=== PATIENT | female | born 1995 | race American Indian/Alaskan Native ===

== ENCOUNTER 2017-10-30 01:11 | Emergency (ER) | payer MEDICAID ==
[2017-10-30 02:22] VITALS: BP 110/55
[2017-10-30 02:58] LABS: Bilirubin,Urine NEG (Negative); Blood,Urine NEG (Negative); Color,Urine Yellow (Yellow); Mucus,Urine 2+ /HPF
[2017-10-30 02:59] LABS: HCG Qualitative,Urine Negative (Negative)
--- NOTE | 2017-10-30 03:48 | XRay Report ---
FINAL REPORT EXAM: XR KNEE 1-2V RT HISTORY: fall knee pain COMPARISON: None available. FINDINGS: Two views of right knee obtained. Bony structures are intact. Joint spaces are preserved. No acute fracture dislocation. IMPRESSION: No acute bony abnormality.
[2017-10-30] MEDS ORDERED: MOTRIN PO ONE (04:45)
--- NOTE | 2017-10-30 04:47 | Emergency Department Report ---
ED Fall HPI - General Chief Complaint: Extremity Injury, Lower Stated Complaint: FALL Time Seen by Provider: 10/30/17 04:42 Source: patient Mode of arrival: Ambulatory - History of Present Illness Initial Comments: 22-year-old -[place] female comes in reporting that she fell off the porch and landed on her knee and now has right knee pain. Patient reports she did not take anything for the pain. It happened approximately 10 PM Sunday night. Patient reports no past medical history currently taking no medications. No known drug allergies. MD Complaint: fall -: hour(s) (6) Fall From: standing When Fall Occurred: 4-[address] Fall Occurred: home (off her porch) Loss of Consciousness: none Prolonged Down Time?: no Symptoms Prior to Fall: none Location - Extremities: Right: Knee Severity: severe Severity scale (0 -10): 10 Quality: sharp Associated Symptoms: denies - Related Data Home Medications Medication Instructions Recorded Confirmed Last Taken Vit No.130/Iron/Folic 1 each PO DAILY 08/04/15 08/04/15 08/03/15 09:00 [ Tablet] Previous Rx's Medication Instructions Recorded Last Taken Type HYDROcodone/APAP 5-325 [[place] 2 each PO Q6H PRN #30 tablet 08/06/15 Unknown Rx 5-325 mg TAB] Ibuprofen [Motrin 600 MG tab] 600 mg PO Q6HR #30 tablet 08/06/15 Unknown Rx Ibuprofen [Motrin 800 MG tab] 800 mg PO Q8HR #15 tablet 10/30/17 Unknown Rx Allergies Allergy/AdvReac Type Severity Reaction Status Date / Time No Known Allergies Allergy Verified 10/30/17 02:16 ED Review of Systems ROS: Stated complaint: FALL Other details as noted in HPI Constitutional: denies: chills, fever Musculoskeletal: arthralgia (rt knee) ED Past Medical Hx - Past Medical History Previous Medical History?: No Hx Hypertension: No Hx Heart Attack/AMI: No Hx Congestive Heart Failure: No Hx Diabetes: No Hx Deep Vein Thrombosis: No Hx Renal Disease: No Hx Sickle Cell Disease: No Hx Seizures: No Hx Asthma: No Hx COPD: No Hx HIV: No - Surgical History Past Surgical History?: No - Social History Smoking Status: Never Smoker Substance Use Type: None - Medications Home Medications: Home Medications Medication Instructions Recorded Confirmed Last Taken Type Vit No.130/Iron/Folic 1 each PO DAILY 08/04/15 08/04/15 08/03/15 09:00 History [ Tablet] HYDROcodone/APAP 5-325 [[place] 2 each PO Q6H PRN #30 tablet 08/06/15 Unknown Rx 5-325 mg TAB] Ibuprofen [Motrin 600 MG tab] 600 mg PO Q6HR #30 tablet 08/06/15 Unknown Rx Ibuprofen [Motrin 800 MG tab] 800 mg PO Q8HR #15 tablet 10/30/17 Unknown Rx ED Physical Exam - General Limitations: No Limitations General appearance: alert, in no apparent distress - Head Head exam: Present: atraumatic, normocephalic - Eye Eye exam: Present: EOMI - ENT ENT exam: Present: mucous membranes moist - Expanded Lower Extremity Exam Right Knee exam: Present: full ROM, tenderness (lateral), pain/laxity with varus, full knee extension. Absent: abrasion, laceration, dislocation, erythema, effusion Lower Leg exam: Present: normal inspection, full ROM. Absent: tenderness, swelling, abrasion Ankle exam: Present: normal inspection, full ROM. Absent: tenderness, swelling Foot/Toe exam: Present: normal inspection. Absent: full ROM, tenderness, swelling Neuro vascular tendon exam: Present: no vascular compromise - Neurological Exam Neurological exam: Present: alert, oriented X3 - Psychiatric Psychiatric exam: Present: normal affect, normal mood - Skin Skin exam: Present: warm, dry, intact, normal color. Absent: rash ED Course Vital Signs 10/30/17 02:16 Temperature 98.2 F Pulse Rate 85 Respiratory 18 Rate Blood Pressure 110/55 O2 Sat by Pulse 98 Oximetry ED Medical Decision Making - Radiology Data Radiology results: report reviewed, image reviewed FINAL REPORT EXAM: XR KNEE 1-2V RT HISTORY: fall knee pain COMPARISON: None available. FINDINGS: Two views of right knee obtained. Bony structures are intact. Joint spaces are preserved. No acute fracture dislocation. IMPRESSION: No acute bony abnormality. Transcribed By: LMA Dictated By: GILBERTO SANCHEZ MD Electronically Authenticated By: GILBERTO SANCHEZ MD Signed Date/Time: 10/30/17343 DD/ 3 TD/TT: 10/30/17343 - Medical Decision Making Patient has been evaluated by this provider fast track. X-ray shows normal examination. We'll give patient ibuprofen 800 mg for pain management. Discharge patient home on ibuprofen 800 mg every 8 hours when necessary for pain. If her symptoms persist or gets worse she can follow-up with her primary care provider or orthopedics. Critical care attestation.: If time is entered above; I have spent that time in minutes in the direct care of this critically ill patient, excluding procedure time. ED Disposition Clinical Impression: Acute pain of right knee Fall Qualifiers: Encounter type: initial encounter Qualified Code(s): W19.XXXA - Unspecified fall, initial encounter Disposition: TO HOME OR SELFCARE Is pt being admited?: No Does the pt Need Aspirin: No Condition: Stable Additional Instructions: Please take pain medication as needed. If her symptoms persist or gets worse please follow up with her primary care provider or orthopedics. I have listed below Prescriptions: Ibuprofen [Motrin 800 MG tab] 800 mg PO Q8HR #15 tablet Referrals: MATTHEW HIDALGO MD [Primary Care Provider] - 3-5 Days MITUL LUQUE MD [Staff Physician] - 3-5 Days [facility] [Provider Group] - 3-5 Days Forms: Work/School Release Form(ED)
== END 2017-10-30 05:20 | disposition home or self-care (01) ==
LOC: ED 01:11
DX: M25.561 Pain in right knee (principal); W08.XXXA Fall from other furniture, initial encounter; Y93.89 Activity, other specified; Y92.89 Other specified places as the place of occurrence of the external cause; Y99.8 Other external cause status
CPT/HCPCS: 81001; 81025; 99284

== ENCOUNTER 2018-08-13 12:57 | Inpatient (IN) | payer MEDICAID ==
[2018-08-13] MEDS ORDERED: LACTATED RINGERS 1,000 ML ONE (15:41)
[2018-08-13] MEDS ORDERED: PITOCin/NS 20 UNIT/1000ML DRIP 20,000 MILLIUNITS/1,000 ML BAG IV ONE (15:44)
[2018-08-13] MEDS ORDERED: NORCO 5/325 PO PRN (16:03)
[2018-08-13] MEDS ORDERED: LANSINOH TP PRN (16:03)
[2018-08-13] MEDS ORDERED: TUCKS PAD TP PRN (16:03)
[2018-08-13] MEDS ORDERED: ZOFRAN IV PRN (16:03)
[2018-08-13] MEDS ORDERED: PHENERGAN PO PRN (16:03)
[2018-08-13] MEDS ORDERED: BENADRYL PO PRN (16:03)
[2018-08-13] MEDS ORDERED: DULCOLAX PR PRN (16:03)
[2018-08-13] MEDS ORDERED: TYLENOL PO PRN (16:03)
[2018-08-13] MEDS ORDERED: MILK OF MAGNESIA PO PRN (16:03)
--- NOTE | 2018-08-13 16:18 | Procedure Note ---
OB Delivery Note - Delivery Date of Delivery: 08/13/18 (8892) Surgeon: OREN PIERRE (CNM) Estimated blood loss: 200cc - Vaginal Delivery presentation: vertex Delivery position: OA Intrapartum events: precipitous labor- <3hr Delivery induction: none Delivery monitor: external FHT, external uterine Route of delivery: Delivery placenta: spontaneous Delivery cord: nuchal cord (x 1, neck and body) Episiotomy: none Delivery laceration: none Anesthesia: none Delivery comments: Called to room to find crying, viable infant male being placed to maternal abdomen. Light meconium noted, NICU came into room immediately behind myself. Cord double clamped and cut following pulsation of cord. IM Pitocin given as no PIV was placed. Placenta spontaneously delivered and disposed per hospital policy. Cord blood collected per hospital policy. Intact perineum, hemostasis maintained. Mother and baby stable and safe. - A at 1 minute: 8 at 5 minutes: 8 Gender: Male (Weight: 2992 gms (6 lbs 10 oz), 19 inches)
--- NOTE | 2018-08-13 16:37 | History and Physical Report ---
History of Present Illness Date of examination: 08/13/18 (1500) Date of admission: 08/13/18 15:11 Chief complaint: Active labor History of present illness: 22 yo, @ 38.4 wks gestation presents to [facility] with reports of ctxs. Denies LOF or VB. Received care at [facility] beginning at 9.3 wks. has been complicated by obesity, BV, Mycoplasma, Vit D deficiency and anemia. Labs: O+; Rubella immune; VDRL negative; HBsAg negative; HIV negative; G C/Chlamydia negative; GBS negative. 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 denies: smoking, alcohol abuse, IV drug use - Obstetrical History Expected Date of Delivery: 08/23/18 Actual Gestation: 38 Week(s) 4 Day(s) : 10 Para: 2 Hx # Term Pregnancies: 2 Number of Pregnancies: 0 Induced : 7 Number of Living Children: 2 #1 Gender: Male year: Method of Delivery: Vaginal Gestational age at delivery: 40 Complications: none #2 Gender: Male year: Method of Delivery: Vaginal Gestational age at delivery: 38 Complications: none Medications and Allergies Allergies Allergy/AdvReac Type Severity Reaction Status Date / Time No Known Allergies Allergy Verified 10/30/17 02:16 Home Medications Medication Instructions Recorded Confirmed Last Taken Type Vit No.130/Iron/Folic 1 each PO DAILY 08/04/15 08/04/15 08/03/15 09:00 History [ Tablet] HYDROcodone/APAP 5-325 [[place] 2 each PO Q6H PRN #30 tablet 08/06/15 Unknown Rx 5-325 mg TAB] Ibuprofen [Motrin 600 MG tab] 600 mg PO Q6HR #30 tablet 08/06/15 Unknown Rx Ibuprofen [Motrin 800 MG tab] 800 mg PO Q8HR #15 tablet 10/30/17 Unknown Rx Active Meds: Active Medications Acetaminophen (Tylenol) 650 mg PO Q4H PRN PRN Reason: Pain MILD(1-3)/Fever >100.5/[place] Acetaminophen/Hydrocodone Bitart ([place] 5/325) 2 each PO Q6H PRN PRN Reason: Pain, Moderate (4-6) Bisacodyl (Dulcolax) 10 mg [place] BID PRN PRN Reason: Constipation Diphenhydramine HCl (Benadryl) 25 mg PO Q6H PRN PRN Reason: Itching Oxytocin/Sodium Chloride (Pitocin/Ns 20 Unit/1000ml Drip) 20 units in 1,000 mls @ 250 mls/hr IV DIRECT JACQUELINE Ibuprofen (Motrin) 600 mg PO Q6HR JACQUELINE Magnesium Hydroxide (Milk Of Magnesia) 30 ml PO HS PRN PRN Reason: Constipation Multi-Ingredient Ointment (Lansinoh) 1 applic TP PRN PRN PRN Reason: Sore Nipples Multivitamins/Iron/Calcium ( Vitamin) 1 each PO QDAY JACQUELINE Ondansetron HCl (Zofran) 4 mg IV Q8H PRN PRN Reason: Nausea And Vomiting Promethazine HCl (Phenergan) 25 mg PO Q6H PRN PRN Reason: Nausea And Vomiting Sodium Chloride (Sodium Chloride Flush Syringe 10 Ml) 10 ml IV PRN NR Witch Itzel/Glycerin (Tucks Pad) 1 each TP PRN PRN PRN Reason: Hemorrhoid/cleansing/soothing Review of Systems All systems: negative Gastrointestinal: abdominal pain (irregular ctxs) - Vital Signs Vital signs: Vital Signs Pulse BP 92 H 111/65 08/13/18 13:22 08/13/18 13:22 Temp Pulse Resp BP Pulse Ox 99.1 F 68 18 144/66 08/13/18 13:23 08/13/18 16:28 08/13/18 13:23 08/13/18 16:28 - Physical Exam Breasts: Positive: normal Cardiovascular: Regular rate, Normal S1, Normal S2 Lungs: Positive: Clear to auscultation, Normal air movement Genitourinary (Female): Positive: normal external genitalia Uterus: Positive: other (S=D) Extremities: Positive: normal Deep Tendon Reflex Grade: Normal +2 - Obstetrical FHR: category 1 Uterine Contraction Monitor Mode: External Cervical Dilatation: 5 Cervical Effacement Percentage: 70 station: +1 Uterine Contraction Frequency (min): 3-4 Uterine Contraction Pattern: Regular Uterine Tone Measurement Phase: Resting Uterine Contraction Intensity: Moderate Results All other labs normal. Assessment and Plan A: 22 yo, @ 38.4 wks gestation Vit D deficiency Anemia Obesity Active labor O+ bld type GBS negative P: Admit to L & D unit Routine labor orders Epidural as desired Anticipate - Patient Problems (1) Active labor Current Visit: No Status: Acute
[2018-08-13] MEDS ORDERED: SODIUM CHLORIDE FLUSH SYRINGE 10 ML IV SCH (17:00)
[2018-08-13] MEDS ORDERED: PITOCin/NS 20 UNIT/1000ML DRIP 20 UNITS/1,000 ML BAG IV SCH (17:00)
[2018-08-13] MEDS: IBUPROFEN PO SCH (21:54)
[2018-08-14] MEDS: IBUPROFEN PO SCH ×4 (00:10→17:51)
[2018-08-14 05:40] LABS: Hematocrit 30.7 % (30.3-42.9); Hemoglobin 10.2 gm/dl (10.1-14.3)
[2018-08-14] MEDS: PRENATAL VITAMIN PO SCH (09:56)
--- NOTE | 2018-08-14 10:00 | Progress Note ---
Assessment and Plan A: PP Day #1 Dysuria P: Follow Routine Orders UA/Urine C&S Subjective - Subjective Date of service: 08/14/18 Patient reports: appetite normal, voiding normally, pain well controlled, flatus, ambulating normally : doing well, bottle feeding (and ) Objective - Vital Signs Latest vital signs: Vital Signs Temp Pulse Resp BP BP Pulse Ox 08/14/18 08:20 98.5 F 66 20 119/73 08/13/18 23:32 99.1 F 95 H 18 115/63 99 08/13/18 20:15 99.3 F 88 18 126/63 98 08/13/18 18:36 98.9 F 82 20 130/80 08/13/18 17:58 84 147/72 08/13/18 17:43 70 150/82 08/13/18 17:28 78 151/69 08/13/18 17:13 65 144/72 08/13/18 16:58 68 142/69 08/13/18 16:43 72 143/65 08/13/18 16:28 68 144/66 08/13/18 16:14 65 150/64 08/13/18 13:23 99.1 F 18 08/13/18 13:22 92 H 111/65 Intake and Output 08/13/18 08/14/18 08/14/18 22:59 06:59 14:59 Intake Total 680 320 Output Total 250 2100 400 Balance -250 -1420 -80 Intake: Oral 680 320 Output: Urine 250 2100 400 Void 250 2100 400 Other: Total, Intake Amount 480 320 Total, Output Amount 250 500 400 # Voids Void 1 Weight 96.162 kg Estimated Blood Loss 200 - Exam Breasts: Present: normal Cardiovascular: Present: Regular rate Lungs: Present: Clear to auscultation, Normal air movement Abdomen: Present: normal appearance, soft, normal bowel sounds Uterus: Present: normal, firm, fundal height below umbilicus Extremities: Present: normal
[2018-08-14 17:44] LABS: Bilirubin,Urine NEG (Negative); Blood,Urine LG (Negative); Calcium Oxalate Crystals,Urine 1+; Color,Urine Yellow (Yellow); Mucus,Urine 2+ /HPF; Urobilinogen,Urine < 2.0 mg/dL (<2.0)
[2018-08-14 17:46] LABS: RBC,Urine > 182.0 /HPF (0.0-6.0)
[2018-08-15] MEDS: IBUPROFEN PO SCH ×3 (06:00→10:30)
--- NOTE | 2018-08-15 09:39 | Progress Note ---
Assessment and Plan - Patient Problems (1) Status post normal vaginal delivery Current Visit: Yes Status: Acute Plan to address problem: PPD 2 - stable Continue routine PP orders Discharge to home later today if PIH labs WNL Follow up at [facility] in 1 week for BP check (2) Gestational hypertension Current Visit: Yes Status: Acute Qualifiers: Trimester: third trimester Qualified Code(s): O13.3 - Gestational [-induced] hypertension without significant proteinuria, third trimester Plan to address problem: Slightly elevated SBPs yesterday and this morning - Asymptomatic PIH labs ordered: within normal limits Subjective - Subjective Date of service: 08/15/18 Principal diagnosis: PPD #2; s/p Interval history: see H&P, OB Delivery 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 Patient reports: appetite normal, voiding normally, pain well controlled, ambulating normally, other (denies dysuria, headache, visual disturbances or RUQ pain) : doing well, other (breast and bottle feeding) Objective - Vital Signs Latest vital signs: Vital Signs Temp Pulse Resp BP Pulse Ox 08/15/18 07:49 98.4 F 82 16 139/71 100 08/14/18 16:10 98.3 F 89 20 126/69 08/14/18 12:38 98.5 F 87 20 113/57 Intake and Output 08/14/18 08/15/18 08/15/18 23:59 07:59 15:59 Intake Total 320 Balance 320 Intake: Oral 320 Other: Total, Intake Amount 320 # Voids Void 1 - Exam Abdomen: Present: normal appearance, soft Vulva: both: normal Uterus: Present: normal, firm, fundal height below umbilicus Extremities: Present: normal Comments: scant lochia - Labs Labs: Abnormal lab results 08/14/18 Range/Units 17:16 Ur Specific [place] 1.035 H (1.003-1.030) Urine WBC (Auto) 9.0 H (0.0-6.0) /HPF
[2018-08-15 09:59] LABS: Hematocrit 32.6 % (30.3-42.9); Hemoglobin 10.9 gm/dl (10.1-14.3); Mean Corpuscular HGB Conc 33 % (30-34); Mean Corpuscular Volume 87 fl (79-97); Platelet Count 220 K/mm3 (140-440); Red Blood Count 3.75 M/mm3 (3.65-5.03); Red Cell Distribution Width 14.4 % (13.2-15.2)
[2018-08-15 10:21] LABS: Uric Acid 4.2 mg/dL (3.5-7.6)
[2018-08-15] MEDS: PRENATAL VITAMIN PO SCH (10:30)
[2018-08-15 10:39] LABS: Bilirubin,Urine NEG (Negative); Blood,Urine LG (Negative); Color,Urine Yellow (Yellow); Mucus,Urine 1+ /HPF; Protein,Urine <15 mg/dL mg/dL (Negative); Urobilinogen,Urine < 2.0 mg/dL (<2.0)
[2018-08-15 10:51] LABS: RBC,Urine > 182.0 /HPF (0.0-6.0)
--- NOTE | 2018-08-15 12:54 | Discharge Summary ---
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 [CONS] Routine Reason For Exam: assistance with , SNS Primary care physician: JANELLE ORTIZ Hospitalization Reason for admission: active labor, IUP at term Delivery: Episiotomy: none Laceration: none Other procedures: none complications: none Discharge diagnosis: IUP at term delivered baby: male Hospital course: Uncomplicated Condition at discharge: Stable Disposition: [id number] TO HOME OR SELFCARE - Discharge Diagnoses (1) Status post normal vaginal delivery Status: Acute (2) Gestational hypertension Status: Acute Qualifiers: Trimester: third trimester Qualified Code(s): O13.3 - Gestational [-induced] hypertension without significant proteinuria, third trimester Comment: Asymptomatic Normal PIH labs 08/15/18 Plan - Provider Discharge Summary Activity: routine, no sex for 6 weeks, no heavy lifting 4 weeks, no strenuous exercise Diet: routine Instructions: routine Additional instructions: [] Smoking cessation referral if applicable(refer to patient education folder for contact #) [] Refer to [facility] Booklet Call your doctor immediately for: * Fever > 100.5 * Heavy vaginal bleeding ( >1 pad per hour) * Severe persistent headache * Shortness of breath * Reddened, hot, painful area to leg or breast * Drainage or odor from incision. * Keep incision clean and dry at all times and follow doctor's instructions regarding bathing/showering - Follow up plan Follow up: JANELLE ORTIZ MD [Primary Care Provider] - 7 Days (Follow up at [facility] in 1 week for BP check)
[2018-08-15 14:17] VITALS: BP 112/61
== END 2018-08-15 16:20 | disposition home or self-care (01) | DRG 774 ==
LOC: TRG 12:57 → LD 15:11 → OB 18:19
PROVIDERS: ADMIT Obstetrics & Gynecology; ATTEND Obstetrics & Gynecology
PROC: 10E0XZZ Delivery of Products of Conception, External Approach (ICD-10-PCS; principal; 2018-08-13)
DX: O62.3 Precipitate labor (principal); O13.4 Gestational [pregnancy-induced] hypertension without significant proteinuria, complicating childbirth; O77.0 Labor and delivery complicated by meconium in amniotic fluid; O69.81X0 Labor and delivery complicated by cord around neck, without compression, not applicable or unspecified; Z3A.38 38 weeks gestation of pregnancy; Z37.0 Single live birth; O99.214 Obesity complicating childbirth; E66.9 Obesity, unspecified; O99.02 Anemia complicating childbirth; D64.9 Anemia, unspecified
CPT/HCPCS: 36415; 81001; 83615; 84450; 84460; 84550; 85014; 85018; 85027; 87086; G0378; A6250; J2590; J7120

== ENCOUNTER 2021-09-30 11:40 | Emergency (ER) | payer MEDICAID ==
[2021-09-30 12:16] VITALS: BP 124/75
--- NOTE | 2021-09-30 15:21 | Emergency Department Report ---
Minor Respiratory - HPI Chief Complaint: Upper Respiratory Infection Stated Complaint: COUGHING/HEADACHE/BODYACHE/NO APPETITE Time Seen by Provider: 09/30/21 15:13 Duration: 3 Days Minor Respiratory: Yes Rhinorrhea, Yes Able to Tolerate Fluids, Yes Cough, No Sore Throat, No Ear Pain, No Sick Contacts, No Hemoptysis, No Chest Pain, No Shortness of Breath, No Fever Other History: 25-year-old -[place] female who presents to the emergency room with fever, cough, rhinorrhea, and myalgia for 2 to 3 days. Patient states she is taking Robitussin and Tylenol with minimal improvement of symptoms. Patient denies recent contact with COVID. States symptoms originally started with a fever and then progressed. Denies headache, fatigue, nausea, vomiting, chest pain, shortness of breath. ED Review of Systems ROS: Stated complaint: COUGHING/HEADACHE/BODYACHE/NO APPETITE Other details as noted in HPI Constitutional: fever. denies: chills ENT: congestion. denies: throat pain Respiratory: cough Cardiovascular: denies: chest pain, palpitations Musculoskeletal: denies: back pain, joint swelling, arthralgia, myalgia Skin: denies: rash, lesions Neurological: denies: headache, weakness, paresthesias Psychiatric: denies: anxiety, depression ED Past Medical Hx - Past Medical History Previous Medical History?: Yes Hx Hypertension: No Hx Heart Attack/AMI: No Hx Congestive Heart Failure: No Hx Diabetes: No Hx Deep Vein Thrombosis: No Hx Renal Disease: No Hx Sickle Cell Disease: No Hx Seizures: No Hx Asthma: No Hx COPD: No Hx HIV: No - Social History Smoking Status: Never Smoker - Medications Home Medications: Home Medications Medication Instructions Recorded Confirmed Last Taken Type Vit No.130/Iron/Folic 1 each PO DAILY 08/04/15 08/14/18 08/14/18 History [ Tablet] HYDROcodone/APAP 5-325 [[place] 2 each PO Q6H PRN #30 tablet 08/06/15 08/14/18 Unknown Rx 5-325 mg TAB] Ibuprofen [Motrin 600 MG tab] 600 mg PO Q6HR #30 tablet 08/06/15 08/14/18 08/14/18 Rx Ibuprofen [Motrin 800 MG tab] 800 mg PO Q8HR #15 tablet 10/30/17 08/14/18 Unknown Rx Dextromethorphan Polistirex 30 mg PO BID #1 bottle 09/30/21 Unknown Rx [Robitussin ER] Fluticasone Propionate [24 Hour 15.8 ml NS DAILY #1 spray 09/30/21 Unknown Rx Allergy Relief] Minor Respiratory Exam - Exam General: Vital signs noted. No distress. Alert and acting appropriately. HEENT: Yes Pharyngeal Erythema (Posterior oropharyngeal), Yes Moist Mucous Membranes, Yes Rhinorrhea, No Pharyngeal Exudates, No Conjuctival Injection, No Frontal Tenderness, No Maxillary Tenderness Ear: Neither TM Bulge, Neither TM Erythema, Neither EAC Pain, Neither EAC Discharge Neck: Yes Supple, No Adenopathy Lungs: Yes Good Air Exchange, No Wheezes, No Ronchi, No Stridor, No Cough, No Labored Respirations, No Retractions, No Use of Accessory Muscles, No Other Abnormal Lung Sounds Heart: Yes Regular, No Murmur Abdomen: Yes Normal Bowel Sounds, No Tenderness, No Peritoneal Signs Skin: No Rash, No Edema Neurologic: Alert and oriented, no deficits. Musculoskeletal: Unremarkable. ED Course Vital Signs 09/30/21 12:13 Temperature 99.0 F Pulse Rate 96 H Respiratory 14 Rate Blood Pressure 124/75 O2 Sat by Pulse 99 Oximetry ED Medical Decision Making - Medical Decision Making 25 y.o. female that presents with URI symptoms. Patient examined by me and stable. No distress noted. Vitals normal. Patient is otherwise healthy patient with viral upper respiratory symptoms. She denies shortness of breath, chest pain, weakness, headache, or fever. 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 There is low suspicion of influenza, pneumonia, strep throat, or sinusitis. Labs and imaging are deferred at this time. There are no indications for antibiotics at this time. Will start supportive medication such as cough suppressant and nasal decongestion. Instructed to continue soax-aip-nolvhve cold and flu medications, increase fluid intake, and wash hands frequently. Discharged home stable with strict return instructions. Follow up with Primary Care Provider in 2-3 days. Return to work tomorrow. Critical care attestation.: If time is entered above; I have spent that time in minutes in the direct care of this critically ill patient, excluding procedure time. ED Disposition Clinical Impression: Viral infection, Cough, Nasal congestion Disposition: HOME / SELF CARE / HOMELESS Is pt being admited?: No Condition: Stable Instructions: Viral Respiratory Infection, [id number] Prescriptions: Fluticasone Propionate [24 Hour Allergy Relief] 15.8 ml NS DAILY #1 spray Dextromethorphan Polistirex [Robitussin ER] 30 mg PO BID #1 bottle Referrals: SHERITA PIKE MD [Staff Physician] - 3-5 Days Forms: Work/School Release Form(ED) Time of Disposition: 15:27
== END 2021-09-30 16:00 | disposition home or self-care (01) ==
LOC: ED 11:40
DX: B34.9 Viral infection, unspecified (principal); R05.9 Cough, unspecified; R09.81 Nasal congestion
CPT/HCPCS: 99282